=== PATIENT | male | born 1980 | race Caucasian/White ===

== ENCOUNTER 2020-10-08 15:10 | Outpatient (CLI) | payer OTHER | END 2020-10-08 15:11 | disposition home or self-care (01) | LOC: BICMRI 15:10 | PROVIDERS: ATTEND Specialist | DX: M51.17 Intervertebral disc disorders with radiculopathy, lumbosacral region (principal); M51.16 Intervertebral disc disorders with radiculopathy, lumbar region | CPT/HCPCS: 72148 ==